=== PATIENT | female | born 1970 ===

== ENCOUNTER 2017-02-07 18:37 | Emergency (ER) | payer OTHER ==
[2017-02-07 18:44] VITALS: O2SAT 97
[2017-02-07] MEDS ORDERED: Albuterol-Ipratrop 3 mg / 0.5 (3 ml) UD ONE ×3 (18:52→20:14)
--- NOTE | 2017-02-07 19:06 | C.PDOC ---
History Of Present Illness 47 year old female, with a history of asthma, presents to the ED with complaints of productive cough with white phlegm which is associated with wheezing, subjective fever, and throat pain beginning yesterday morning. Patient states she does not have an inhaler at home and is a smoker. She denies headache, palpitations, chest pain, or chills. Time Seen by Provider: 02/07/17 18:59 Chief Complaint (Nursing): Shortness Of Breath History Per: Patient History/Exam Limitations: no limitations Onset/Duration Of Symptoms: Days (2 days ) Current Symptoms Are (Timing): Still Present Current Respiratory Medications: None Associated Symptoms: Fever, Productive Cough. denies: Chills Recent travel outside of the [place]: No Past Medical History Reviewed: Historical Data, Nursing Documentation, Vital Signs Vital Signs: Last Vital Signs Temp 98.2 F 02/07/17 20:11 Pulse 91 H 02/07/17 20:11 Resp 18 02/07/17 20:11 BP 116/71 02/07/17 20:11 Pulse Ox 97 02/07/17 20:53 - Medical History PMH: Asthma Family History: States: Unknown Family Hx - Social History Hx Tobacco Use: Yes Hx Alcohol Use: No Hx Substance Use: No - Immunization History Hx Tetanus Toxoid Vaccination: No Hx Influenza Vaccination: No Hx Pneumococcal Vaccination: No Review Of Systems Except As Marked, All Systems Reviewed And Found Negative. Constitutional: Positive for: Fever (subjective fever ). Negative for: Chills ENT: Positive for: Throat Pain Cardiovascular: Negative for: Chest Pain, Palpitations Respiratory: Positive for: Cough (productive cough ), Wheezing Gastrointestinal: Negative for: Nausea, Vomiting Physical Exam - Physical Exam Appears: Non-toxic, No Acute Distress Skin: Warm, Dry, No Rash Head: Atraumatic, Normacephalic Eye(s): bilateral: Normal Inspection, PERRL, EOMI Ear(s): Bilateral: Normal Nose: Normal, No Discharge Oral Mucosa: Moist Throat: Normal, No Erythema, No Exudate Neck: Supple Chest: Symmetrical, No Deformity Cardiovascular: Rhythm Regular, No Friction Rub, No Murmur Respiratory: No Rales, No Rhonchi, Wheezing (expiratory wheeze ) Gastrointestinal/Abdominal: Bowel Sounds (active), Soft, No Tenderness Back: Normal Inspection, No CVA Tenderness Extremity: Normal ROM, No Tenderness, No Calf Tenderness, No Swelling Neurological/Psych: Oriented x3, Normal Speech, Normal Motor Gait: Steady ED Course And Treatment O2 Sat by Pulse Oximetry: 97 (RA) Pulse Ox Interpretation: Normal - Radiology CXR: Interpreted by Me, Viewed By Me CXR Interpretation: Yes: Infiltrates (interstitial infiltrates) Progress Note: CXR was ordered. Patient was given albuterol, zithromax, and solumedrol. Medical Decision Making Medical Decision Making: On first re-exam, the patient reports moderate improvement of symptoms but still has wheezing bilaterally. Duonebs is continued On second re-exam, the patient reports improvement of symptoms. Lungs are CTA, heart is RRR, Ambulatory in the ED with steady gait. Abdomen is soft, non- tender and tolerating PO well. Follow up with the medical doctor within 1-2 days. Return if worsened Disposition - Disposition Referrals: Pa Agrawal MD [Medical Doctor] - Disposition: HOME/ ROUTINE Disposition Time: 20:44 Condition: GOOD Additional Instructions: Follow up with the medical doctor within 1-2 days. Return if worsened Prescriptions: Albuterol 0.5% [Albuterol 0.5% Inhal [place] (2.5 mg/0.5 ml) UD] 0.5 ml IH Q6 PRN # 20 neb PRN Reason: Wheezing Albuterol HFA [Ventolin HFA 90 mcg/actuation (8 g)] 1 puff IH Q6 #100 puff Azithromycin [Zithromax] 250 mg PO DAILY #4 tab predniSONE [Prednisone] 20 mg PO BID #10 tab Instructions: Asthma (DC) Forms: [employer] (Slovenian) - Clinical Impression Clinical Impression: Asthma - Scribe Statement The provider has reviewed the documentation as recorded by the Scribe Saida Pimentel All medical record entries made by the Scribe were at my direction and personally dictated by me. I have reviewed the chart and agree that the record accurately reflects my personal performance of the history, physical exam, medical decision making, and the department course for this patient. I have also personally directed, reviewed, and agree with the discharge instructions and disposition.
[2017-02-07] MEDS: Albuterol-Ipratrop 3 mg / 0.5 (3 ml) UD IH SCH (19:43)
[2017-02-07 19:48] VITALS: RESP 18
[2017-02-07] MEDS ORDERED: Albuterol-Ipratrop 3 mg / 0.5 (3 ml) UD INH STA (20:09)
[2017-02-07 20:12] VITALS: BP 116/71; PULSE 91; TEMP 98.2
--- NOTE | 2017-02-08 09:01 | RAD ---
HISTORY: cough, fever, asthma COMPARISON: No prior. TECHNIQUE: Chest PA and lateral FINDINGS: LUNGS: Mild venous congestion. Some mild patchy increased markings at the left lung base. PLEURA: No significant pleural effusion identified. No pneumothorax apparent. CARDIOVASCULAR: Normal. OSSEOUS STRUCTURES: No significant abnormalities. VISUALIZED UPPER ABDOMEN: Normal. OTHER FINDINGS: None. IMPRESSION: Mild venous congestion. Some mild patchy increased markings at the left lung base.
== END 2017-02-07 20:56 | disposition home or self-care (01) ==
LOC: C.ER 18:37
DX: J45.909 Unspecified asthma, uncomplicated (principal)
CPT/HCPCS: 71020; 94150; 94640; 96374; 99284; J2930